=== PATIENT | female | born 1945 | race Caucasian/White ===

== ENCOUNTER 2021-06-18 05:51 | Emergency (ER) | payer MEDICARE, OTHER ==
[~2021-06-18] VITALS: Ht 158 cm; Wt 75.3 kg
[2021-06-18] MEDS ORDERED: NF-DOR2% (05:59)
--- NOTE | 2021-06-18 06:13 | ED Fall/Injury ---
General Chief Complaint: Trauma-Non Activation Stated Complaint: FALL,HIP PAIN Nursing Triage Note: FALL FROM BED, C/O RIGHT HIP PAIN. Source: patient, EMS Exam Limitations: no limitations History of Present Illness Date Seen by Provider: Jun 18, 2021 Time Seen by Provider: 05:55 Initial Comments Patient to the ER by EMS from home with chief complaint about 2 hours prior to arrival she was getting out of bed and fell to the ground. She struck her right hip causing pain in her right hip. She has a history of a titanium ronan in her right hip by Dr. Pascual in [place]. She follows with Dr. Carreno now and Dr. Blevins for primary care. She is not on blood thinners and denies hitting her head nor loss of consciousness. She says it was no syncope chest pain shortness of air fever chills cough nausea or vomiting. No loss of control of bowel or bladder, decreased sensation in her feet, knee or ankle pain on the ipsilateral side. Last oral intake was yesterday evening. Allergies and Home Medications Allergies Coded Allergies: No Known Drug Allergies (Unverified , 06/18/21) Patient Home Medication List Home Medication List Reviewed: Yes Dorzolamide HCl (Dorzolamide HCl) 10 Ml Drops, (Reported) Entered as Reported by: MILAN MURPHY on 06/18/21 9256 Last Action: New Order Review of Systems Review of Systems Constitutional: No chills, No diaphoresis Eyes: Denies Blindness, Denies Blurred Vision Ears, Nose, Mouth, Throat: denies ear pain, denies ear discharge Respiratory: No cough, No dyspnea on exertion Cardiovascular: No chest pain, No palpitations Gastrointestinal: No abdominal pain, No nausea Genitourinary: No discharge, No dysuria All Other Systems Reviewed Negative Unless Noted: Yes Past Heckktd-Fyfuiy-Vgdxkk Hx Patient Social History Tobacco Use?: No Substance use?: No Alcohol Use?: No Pt feels they are or have been: No Immunizations Up To Date First/Initial COVID19 Vaccinat: 03/08 Second COVID19 Vaccination Kendrick: 04/07 COVID19 Vaccine Presentation Manager: MODERNA Past Medical History Surgery/Hospitalization HX: RIGHT FEMUR FX Physical Exam Vital Signs Vital Signs - First Documented 06/18/21 05:54 Temp 36.2 Pulse 86 Resp 16 B/P (MAP) 134/82 (99) Pulse Ox 93 O2 Delivery Room Air Capillary Refill : Less Than 3 Seconds Height, Weight, BMI Height: '" Weight: lbs. oz. kg; 30.00 BMI Method: General Appearance: WD/WN, mild distress HEENT: PERRL/EOMI, pharynx normal Neck: full range of motion, normal inspection Cardiovascular: normal peripheral pulses, regular rate, rhythm Respiratory: no respiratory distress, no accessory muscle use Peripheral Pulses: 2+ Radial Pulses (R), 2+ Radial Pulses (L) Gastrointestinal: non tender, soft Extremities: other (Tenderness to palpation over the right greater trochanter with external rotation and shortening of the right leg. Right knee is nontender with no deformity as well as right ankle nontender with no deformity.) Neurologic/Psychiatric: no motor/sensory deficits, alert, normal mood/affect, oriented x 3 Skin: normal color, warm/dry Julianna Coma Score Best Eye Response: (4) Open Spontaneously Best Verbal Response: (5) Oriented Best Motor Response: (6) Obeys Commands Umpire Total: 15 Progress/Results/Core Measures Results/Orders Lab Results Laboratory Tests Test 06/18/21 06:32 06/18/21 06:53 Range/Units White Blood Count 19.1 H 4.3-11.0 10^3/uL Red Blood Count 4.87 3.80-5.11 10^6/uL Hemoglobin 14.4 11.5-16.0 g/dL Hematocrit 44 35-52 % Mean Corpuscular Volume 91 80-99 fL Mean Corpuscular Hemoglobin 30 25-34 pg Mean Corpuscular Hemoglobin Concent 32 32-36 g/dL Red Cell Distribution Width 14.1 10.0-14.5 % Platelet Count 297 130-400 10^3/uL Mean Platelet Volume 10.2 9.0-12.2 fL Immature Granulocyte % (Auto) 1 % Neutrophils (%) (Auto) 88 H 42-75 % Lymphocytes (%) (Auto) 6 L 12-44 % Monocytes (%) (Auto) 5 0-12 % Eosinophils (%) (Auto) 0 0-10 % Basophils (%) (Auto) 0 0-10 % Neutrophils # (Auto) 16.8 H 1.8-7.8 10^3/uL Lymphocytes # (Auto) 1.2 1.0-4.0 10^3/uL Monocytes # (Auto) 0.9 0.0-1.0 10^3/uL Eosinophils # (Auto) 0.0 0.0-0.3 10^3/uL Basophils # (Auto) 0.1 0.0-0.1 10^3/uL Immature Granulocyte # (Auto) 0.1 0.0-0.1 10^3/uL Neutrophils % (Manual) 89 % Lymphocytes % (Manual) 7 % Monocytes % (Manual) 1 % Eosinophils % (Manual) 0 % Basophils % (Manual) 0 % Band Neutrophils 3 % Blood Morphology Comment NORMAL Sodium Level 140 135-145 MMOL/L Potassium Level 3.9 3.6-5.0 MMOL/L Chloride Level 104 98-107 MMOL/L Carbon Dioxide Level 24 21-32 MMOL/L Anion Gap 12 5-14 MMOL/L Blood Urea Nitrogen 11 7-18 MG/DL Creatinine 0.76 0.60-1.30 MG/DL Estimat Glomerular Filtration Rate 74 BUN/Creatinine Ratio 14 Glucose Level 156 H 70-105 MG/DL Calcium Level 9.4 8.5-10.1 MG/DL Corrected Calcium 9.8 8.5-10.1 MG/DL Total Bilirubin 0.5 0.1-1.0 MG/DL Aspartate Amino Transf (AST/SGOT) 13 5-34 U/L Alanine Aminotransferase (ALT/SGPT) 11 0-55 U/L Alkaline Phosphatase 88 40-136 U/L Total Creatine Kinase 30 29-168 U/L Total Protein 6.4 6.4-8.2 GM/DL Albumin 3.5 3.2-4.5 GM/DL Urine Color YELLOW Urine Clarity SL CLOUDY Urine pH 6.0 5-9 Urine Specific [place] 1.025 H 1.016-1.022 Urine Protein NEGATIVE NEGATIVE Urine Glucose (UA) NEGATIVE NEGATIVE Urine Ketones NEGATIVE NEGATIVE Urine Nitrite NEGATIVE NEGATIVE Urine Bilirubin NEGATIVE NEGATIVE Urine Urobilinogen 4.0 < = 1.0 MG/DL Urine Leukocyte Esterase NEGATIVE NEGATIVE Urine RBC (Auto) NEGATIVE NEGATIVE Urine RBC RARE /HPF Urine WBC RARE /HPF Urine Squamous Epithelial Cells NONE /HPF Urine Crystals NONE /LPF Urine Bacteria NEGATIVE /HPF Urine Casts NONE /LPF Urine Mucus NEGATIVE /LPF Urine Culture Indicated NO My Orders Orders - MARIIA LIMA J Hip, Right, 2 Views (06/18/21 06:07) Chest 1 View, Ap/Pa Only (06/18/21 06:22) Cbc With Automated Diff (06/18/21 06:22) Comprehensive Metabolic Panel (06/18/21 06:22) Creatine Kinase (06/18/21 06:22) Ua Culture If Indicated (06/18/21 06:22) Catheter(Urinary) Insert & Ass 03,15 (06/18/21 06:22) Ekg Tracing (06/18/21 06:24) Ed Iv/Invasive Line Start (06/18/21 06:27) Ns Iv 1000 Ml (Sodium Chloride 0.9%) (06/18/21 06:30) Fentanyl Inj (Sublimaze Injection) (06/18/21 06:30) Manual Differential (06/18/21 06:32) Morphine Injection (Morphine Injection (06/18/21 07:37) Morphine Injection (Morphine Injection (06/18/21 08:02) Knee, Right, 3 Views (06/18/21 10:34) Morphine Injection (Morphine Injection (06/18/21 11:21) Lactated Ringers (Lr 1000 Ml Iv Solution (06/18/21 11:30) Morphine Injection (Morphine Injection (06/18/21 12:44) Morphine Injection (Morphine Injection (06/18/21 12:46) Medications Given in ED Current Medications Medications Dose Ordered Sig/Zahra Route Start Time Stop Time Status Last Admin Dose Admin Fentanyl Citrate 50 mcg ONCE ONCE IVP 06/18/21 06:30 06/18/21 06:31 DC 06/18/21 06:36 50 MCG Vital Signs/I&O 06/18/21 06/18/21 05:54 12:51 Temp 36.2 Pulse 86 77 Resp 16 13 B/P (MAP) 134/82 (99) 123/74 Pulse Ox 93 94 O2 Delivery Room Air Room Air Blood Pressure Mean: 99 Progress Progress Note #1: Time: 06:12 Progress Note Plain film right hip. If there is evidence of fracture or dislocation then we can put an IV and get some labs as well as a chest, x-ray EKG. At this time patient declined anything for pain. Progress Note #2: Time: 07:16 Progress Note Patient is much better controlled after 50 mcg of fentanyl. She has asked that Dr. Carreno do her surgery locally. Dr. Carreno, orthopedics is not on-call today but we did put a message into him since this during the day and will await a return call. Progress Note #3: Time: 07:[address] Bañuelos return phone call for Ortho 4 states and states she will touch bases with Dr. Carreno and see what he wants to do. Patient states her pain is starting to come back so 2 of morphine was ordered IV. Progress Note #4: Time: 10:28 Progress Note Pt States she prefers to have surgery locally and would like Dr Hutchinson to address her hip if possible. He would like to get knee films. Progress Note #5: Time: 11:[address] Hutchinson advises that we do not have appropriate equipment to do a surgical extraction of the right femoral pin. He would recommend transferring to a higher echelon of care with appropriate equipment. Initial ECG Impression Date: Jun 18, 2021 Initial ECG Impression Time: 06:25 Initial ECG Rate: 74 Initial ECG Rhythm: Normal Sinus Initial ECG Intervals: Normal Initial ECG Impression: Normal Initial ECG Comparisson: No Previous ECG Available Comment Normal sinus rhythm without clinically relevant ST elevation or depression. Diagnostic Imaging Diagonstic Imaging: Xray Plain Films/CT/US/NM/MRI: hip (Right 2 view) Comments NAME: AILEENHAN [employer] REC#: [id number] PT STATUS: REG ER : 1945 PHYSICIAN: MARIIA LIMA MD ADMIT DATE: 06/18/21/ER Draft Date of Exam:06/18/21 HIP, RIGHT, 2 VIEWS INDICATION: Right hip injury, pain, fall. COMPARISON: None. FINDINGS: 2 limited views of the right hip demonstrates a displaced femoral neck fracture. There is an IM ronan within the femur. The pelvis is poorly visualized. IMPRESSION: Slightly displaced right femoral neck fracture. Dictated on workstation # [id number] Dict: 06/18/2131 Trans: 06/18/2134 [id number] Interpreted by: KONSTANTIN CHAPA Electronically signed by: Reviewed: Reviewed by Me Diagonstic Imaging: Xray Plain Films/CT/US/NM/MRI: chest Comments [facility], [place] NAME: HAN GALLAGHER [employer] REC#: [id number] PT STATUS: REG ER : 1945 PHYSICIAN: MARIIA LIMA MD ADMIT DATE: 06/18/21/ER Signed Date of Exam:06/18/21 CHEST 1 VIEW, AP/PA ONLY INDICATION: Fall COMPARISON: None. FINDINGS: Frontal view the chest demonstrates clear lungs bilaterally. The heart size is normal. There is no pneumothorax. Osseous structures are normal. IMPRESSION: No acute findings. Normal chest. Dictated by: Dictated on workstation # [id number] Dict: 06/18/21630 Trans: 06/18/21630 [id number] Interpreted by: KONSTANTIN CHAPA Electronically signed by: KONSTANTIN CHAPA 06/18/21630 Reviewed: Reviewed by Ma Diagonstic Imaging: Xray Plain Films/CT/US/NM/MRI: knee (r) Comments [facility], [place] NAME: HAN GALLAGHER [facility] REC#: [id number] PT STATUS: REG ER : 1945 PHYSICIAN: MARIIA LIMA MD ADMIT DATE: 06/18/21/ER Draft Date of Exam:06/18/21 KNEE, RIGHT, 3 VIEWS CLINICAL INDICATION: Patient fell out of bed this morning with knee pain. EXAM: X-ray of the right knee, 3 views. COMPARISON: None. FINDINGS: There is no acute fracture. There is intramedullary ronan affixing the distal right femur healed fracture region. There is moderate to severe medial compartment narrowing and mild to moderate lateral compartment narrowing. There are moderately hypertrophic tricompartmental spurs. Suspected old healed fracture changes of the proximal fibular diametaphysis. There is no knee effusion. IMPRESSION: 1: There is no acute fracture or dislocation. 2: There is severe tricompartmental osteoarthritis of the right knee. 3: Old healed fracture changes with open reduction internal fixation of the distal right femur. There are also old fracture changes of the proximal right fibula. Dictated on workstation # [id number] Dict: 06/18/21 1154 Trans: 06/18/21 1158 [id number] Interpreted by: SAMIRA RON MD Electronically signed by: Reviewed: Reviewed by Me Departure Communication (PCP) 1150: Left a voicemail with primary care provider 1200: Discussed the case and disposition with Dr. Blevins. Impression Primary Impression: Fall Qualified Codes: W19.XXXA - Unspecified fall, initial encounter Additional Impression: Closed right hip fracture Qualified Codes: S72.001A - Fracture of unspecified part of neck of right femur, initial encounter for closed fracture Disposition: 02 XFER SHT-TRM HOSP Condition: Stable Transfer Transfer Reason: Exceeds level of care (No Surgical equipment for extraction) Time Spoke to Accepting Phy: 11:50 Transfer Progress Notes 1100: Pt prefers [facility] if she has to be transferred as Dr. Pascual placed the ronan a couple years ago. 1149: Dr. Burton called us back and states it would be okay to transfer her to his care via the ER. 1150: Dr Pendleton ER physician accepts the patient. Transfer Time: 13:00 Transfer Facility: [facility] [place] [facility] Method of Transfer: EMS ([facility]) MARIIA LIMA Jun 18, 2021 06:13
[2021-06-18] MEDS ORDERED: fentaNYL INJ 100 MCG/2 ML AMP IVP ONE (06:30)
[2021-06-18] MEDS ORDERED: NS IV 1000 ML 1,000 ML IV SCH (06:30)
--- NOTE | 2021-06-18 06:32 | Diagnostic Imaging Report ---
INDICATION: Fall COMPARISON: None. FINDINGS: Frontal view the chest demonstrates clear lungs bilaterally. The heart size is normal. There is no pneumothorax. Osseous structures are normal. IMPRESSION: No acute findings. Normal chest. Dictated by: Dictated on workstation # [id number]
--- NOTE | 2021-06-18 06:34 | Diagnostic Imaging Report ---
INDICATION: Right hip injury, pain, fall. COMPARISON: None. FINDINGS: 2 limited views of the right hip demonstrates a displaced femoral neck fracture. There is an IM ronan within the femur. The pelvis is poorly visualized. IMPRESSION: Slightly displaced right femoral neck fracture. Dictated by: Dictated on workstation # [id number]
[2021-06-18 06:44] LABS: BASOPHILS # (AUTO) 0.1 10^3/uL (0.0-0.1); BASOPHILS % (AUTO) 0 % (0-10); EOSINOPHILS % (AUTO) 0 % (0-10); HEMATOCRIT 44 % (35-52); HEMOGLOBIN 14.4 g/dL (11.5-16.0); LYMPHOCYTES # (AUTO) 1.2 10^3/uL (1.0-4.0); LYMPHOCYTES % (AUTO) 6 % (12-44); MEAN CORPUSCULAR HEMOGLOBIN 30 pg (25-34); MEAN CORPUSCULAR HGB CONC 32 g/dL (32-36); MEAN CORPUSCULAR VOLUME 91 fL (80-99); MEAN PLATELET VOLUME 10.2 fL (9.0-12.2); MONOCYTES # (AUTO) 0.9 10^3/uL (0.0-1.0); MONOCYTES % (AUTO) 5 % (0-12); NEUTROPHILS # (AUTO) 16.8 10^3/uL (1.8-7.8); NEUTROPHILS % (AUTO) 88 % (42-75); PLATELET COUNT 297 10^3/uL (130-400); WHITE BLOOD COUNT 19.1 10^3/uL (4.3-11.0)
[2021-06-18 06:51] LABS: ALBUMIN 3.5 GM/DL (3.2-4.5); POTASSIUM 3.9 MMOL/L (3.6-5.0)
[2021-06-18 06:53] LABS: CALCIUM 9.4 MG/DL (8.5-10.1)
[2021-06-18 06:54] LABS: TOTAL PROTEIN 6.4 GM/DL (6.4-8.2)
[2021-06-18 06:56] LABS: BILIRUBIN,TOTAL 0.5 MG/DL (0.1-1.0)
[2021-06-18 06:57] LABS: CREATININE SERUM 0.76 MG/DL (0.60-1.30)
[2021-06-18 06:59] LABS: BILIRUBIN,URINE NEGATIVE (NEGATIVE); CLARITY,URINE SL CLOUDY; COLOR,URINE YELLOW; GLUCOSE, URINE (UA) NEGATIVE (NEGATIVE); KETONES,URINE NEGATIVE (NEGATIVE); LEUKOCYTE ESTERASE ,URINE NEGATIVE (NEGATIVE); NITRITE,URINE NEGATIVE (NEGATIVE); PROTEIN,URINE NEGATIVE (NEGATIVE)
[2021-06-18 07:06] LABS: BAND NEUTROPHILS 3 %; BASOPHILS % (MANUAL) 0 %; EOSINOPHILS % (MANUAL) 0 %; LYMPHOCYTES % (MANUAL) 7 %; MONOCYTES % (MANUAL) 1 %; NEUTROPHILS % (MANUAL) 89 %; RBC MORPH NORMAL
[2021-06-18 07:08] LABS: BACTERIA,URINE NEGATIVE /HPF; RBC,URINE RARE /HPF; WBC,URINE RARE /HPF
[2021-06-18] MEDS ORDERED: morphine INJ 10 MG/ML 1ML (SYR OR VIAL) IVP STA ×4 (07:37→12:44)
[2021-06-18] MEDS ORDERED: LACTATED RINGERS 1,000 ML IV SCH (11:30)
--- NOTE | 2021-06-18 11:59 | Diagnostic Imaging Report ---
CLINICAL INDICATION: Patient fell out of bed this morning with knee pain. EXAM: X-ray of the right knee, 3 views. COMPARISON: None. FINDINGS: There is no acute fracture. There is intramedullary ronan affixing the distal right femur healed fracture region. There is moderate to severe medial compartment narrowing and mild to moderate lateral compartment narrowing. There are moderately hypertrophic tricompartmental spurs. Suspected old healed fracture changes of the proximal fibular diametaphysis. There is no knee effusion. IMPRESSION: 1: There is no acute fracture or dislocation. 2: There is severe tricompartmental osteoarthritis of the right knee. 3: Old healed fracture changes with open reduction internal fixation of the distal right femur. There are also old fracture changes of the proximal right fibula. Dictated by: Dictated on workstation # [id number]
[2021-06-18] MEDS ORDERED: morphine INJ 10 MG/ML 1ML (SYR OR VIAL) ONE (12:46)
[2021-06-18 12:51] VITALS: BP 123/74
== END 2021-06-18 12:51 | disposition short-term general hospital (02) ==
LOC: EDUNIT# 05:51 → ER 05:53
DX: S72.091A Other fracture of head and neck of right femur, initial encounter for closed fracture (principal); W22.8XXA Striking against or struck by other objects, initial encounter
CPT/HCPCS: 36415; 51702; 71045; 73502; 73562; 80053; 81000; 82550; 85007; 85027; 93005